=== PATIENT | male | born 1965 | race Caucasian/White ===

== ENCOUNTER → 2021-01-29 | Outpatient (CLI) | payer OTHER ==
[~2021-01-29] MED LIST: ASA81BEC PO; HYDRALAZINE 10M10 MG PO; MICARDIS40 MG PO; TOPROL XL25 MG PO
--- NOTE | 2021-01-29 16:58 | CARDNUC ---
[place] [address] CARDIAC NUCLEAR IMAGING REPORT Name: ROMI CONLEY JR Room: [facility]#: [id number] Admission: 01/29/21 Attend Phys: Luis Haddad, Discharge: Date of : 67 Date of Service: 01/29/21 1657 Report #: [id number] THIS REPORT FOR: cc: Rosa Maria Vences Linda J. DO Liston, Michael J. MD [facility] ~ APPROVED REPORT Imaging Protocol: Stress Tc-99m/Rest Tc-99m 1 day Study performed: 01/29/2021 12:30:00 Indication: Dyspnea on exertion, CAD Patient Location: Out-Patient Stress Nurse: DUSTIN Pearson Tech:HERSON Mccullough Ht: 5 ft 9 in Wt: 185 lbs BSA: 2.00 m2 BMI: 27.31 Medical History Medical History: Chest pain, dyspnea, CAD s/p CABG, CAD s/p [place], CAD s/p stent, Carotid artery disease, remote valve replacement, TIA, palpitations, sinus tachycardia, HTN, HLD, current smoker, FHX CAD, fatigue, weakness. Medications: Hydralazine, Metoprolol, Telmisartan. Allergies: No known drug allergies Cardiac Risk Factors: Age, Current Smoker, FHX of CAD, HTN, Hyperlipidemia, SOB, tachycardia, palpitations, carotid artery disease. Previous Cardiac Procedures: Myocardial infarction, PCI, CABG, Valve replacement. Pretest Chest Pain Characteristics: No chest pain Exercise History: Indeterminate Physical Disabilities: Fatigue, weakness. Meds Held (24 hrs): Metoprolol. Resting Data Rest SPECT myocardial perfusion imaging was performed in supine position 30 minutes following the intravenous injection of 9.6 mCi of Tc-99m Sestamibi. Time of rest injection: 12:55 The images were gated to evaluate regional wall motion and calculate left ventricular ejection fraction. Administration Route: [place] [address] CARDIAC NUCLEAR IMAGING REPORT Name: ROMI CONLEY Room: [facility]#: [id number] Admission: 01/29/21 Attend Phys: Luis Haddad, Discharge: Date of : 67 Date of Service: 01/29/21 1657 Report #: [id number] Administration Site: Right Arm Pharmacologic Stress Pharmacologic stress test was performed by injecting Regadenoson 0.4 mg IV push over 10-15 seconds immediately followed by the intravenous injection of 34.7 mCi of Tc-99m Sestamibi. Time of stress injection: 14:10 Administration Route: IV Administration Site: Right Arm Heart Rate at time of stress injection: 122 bpm. Gated Stress SPECT was performed 40 minutes after stress injection. The images were gated to evaluate regional wall motion and calculate left ventricular ejection fraction. Prone imaging was performed. Stress Test Details Stress Test: Pharmacologic stress testing performed using 0.4 mg of regadenoson per 5 mL given IV over 10 seconds. Reason for pharmacologic stress test: Fatigue, weakness.. HR Max Heart Rate (APMHR): 165 bpm Resting HR: 102 bpm Target HR (85% APMHR): 140 bpm Max HR Achieved: 122 bpm % of APMHR: 73 Recovery HR: 109 bpm BP Resting BP: 152/96 mmHg Max BP: 151/95 mmHg Recovery BP: 148/103 mmHg ECG Resting ECG: Sinus Tachycardia Stress ECG: Sinus Tachycardia ST Change: None Arrhythmia: None Recovery ECG: Sinus Tachycardia Recovery ST Change: None Recovery Arrhythmia: None Clinical Reason for Termination: Completed protocol Stress Symptoms: Dyspnea, Lightheadedness, Flushed/warmth, diaphoresis. Exercise duration: 00 min 00 sec Exercise capacity: 1.00 [place] [address] CARDIAC NUCLEAR IMAGING REPORT Name: ROMI CONLEY JR Room: [facility]#: [id number] Admission: 01/29/21 Attend Phys: Luis Haddad, Discharge: Date of : 67 Date of Service: 01/29/21 1657 Report #: [id number] The patient tolerated Lexiscan infusion without significant cardiac symptoms. Nurse Comments Patient tolerated a sitting Lexiscan. Patient was stable and stated he felt good when escorted to [facility] for imaging. Patient adamantly refused to walk on treadmill during two separate dates and conversations. Patient stated he could not do treadmill and would only be able to do pharmacological test. Stress ECG Conclusion The baseline twelve-lead EKG shows sinus tachycardia without significant ST segment or T wave abnormality. EKGs obtained during and post Lexiscan infusion show sinus tachycardia with no significant ST segment or T wave changes when compared to baseline. There were no significant stress-induced arrhythmias. Study Quality Study: Fair Artifact: Moderate Diaphragmatic artifact Study Data At rest, the left ventricular ejection fraction was 65%.. Post stress, the left ventricular ejection was 66%.. TID = 1.04. Perfusion Perfusion images obtained in the supine position post Lexiscan infusion show moderate photopenia of the inferior wall at rest and severe photopenia of the basal to mid inferior wall post stress. Post-rest prone imaging shows near complete resolution of inferior wall photopenia with the exception of a focal region of photopenia in the mid inferior wall. No other significant fixed or reversible defects are identified. Wall Motion Global LV systolic function is normal. There is a septal wall motion abnormality noted consistent with prior bypass procedure. Nuclear Conclusion ECG Findings: negative for ischemia Clinical Findings: negative for ischemia Nuclear Findings: equivocal Left Ventricular Function: normal Perfusion studies of the inferior wall are significantly technically limited due to diaphragmatic attenuation artifact. Gated study [address] [address] CARDIAC NUCLEAR IMAGING REPORT Name: ROMI CONLEY JR [id number] Admission: 01/29/21 Attend Phys: Luis Haddad, Discharge: Date of : 67 Date of Service: 01/29/21 1657 Report #: [id number] showed normal wall motion in this region. Cannot, however, rule out focal infarct or ischemia of the mid inferior wall with the data acquired. Global LV systolic function is normal as outlined above. This does not appear to be a high risk study. <Conclusion> The baseline twelve-lead EKG shows sinus tachycardia without significant ST segment or T wave abnormality. EKGs obtained during and post Lexiscan infusion show sinus tachycardia with no significant ST segment or T wave changes when compared to baseline. There were no significant stress-induced arrhythmias. <ELECTRONICALLY SIGNED> By: Jason Mcbride MD, FACC 01/29/211656 [id number] Jason Mcbride MD, FACC /INF
== END ==
LOC: M.NUC 12-27 09:13
PROVIDERS: ATTEND Internal Medicine
DX: I25.10 Atherosclerotic heart disease of native coronary artery without angina pectoris (principal); R00.0 Tachycardia, unspecified